=== PATIENT | male | born 2000 | race Caucasian/White ===

== ENCOUNTER 2021-08-10 07:29 | Emergency (ER) | payer OTHER ==
[~2021-08-10] VITALS: Ht 188 cm; Wt 90.7 kg
[~2021-08-10 07:29] MED LIST: ACETAMINOPHEN-1 EAC1 PO; APAP500 PO; AUGMENTIN 500-1 EACH PO; IBUPROFEN 600600 M1 PO; IBUPROFEN 800800 MG PO; KEFLEX500 MG PO; MEDROLDOSEPACK PO; MELOXICAM15 MG PO; Magic Mouthwash PO; NOHOMEMEDICATIONS; PAXIL10 MG
[2021-08-10 07:31] VITALS: BP 130/53
[2021-08-10 09:25] LABS: AMP/METHAMP Negative (Negative); BARBITURATES Negative (Negative); BENZODIAZEPINES Negative (Negative); COCAINE Negative (Negative); METHADONE Negative (Negative); OPIATES Negative (Negative); PCP Negative (Negative)
== END 2021-08-10 09:01 | disposition home or self-care (01) ==
LOC: ER 07:29
PROVIDERS: Student in an Organized Health Care Education/Training Program
DX: S61.212A Laceration without foreign body of right middle finger without damage to nail, initial encounter (principal); S61.214A Laceration without foreign body of right ring finger without damage to nail, initial encounter; W25.XXXA Contact with sharp glass, initial encounter; Y93.89 Activity, other specified; Y92.89 Other specified places as the place of occurrence of the external cause; Y99.8 Other external cause status

== ENCOUNTER 2021-08-18 14:02 | Emergency (ER) | payer OTHER ==
[~2021-08-18] VITALS: Ht 187.9 cm; Wt 79.4 kg
[2021-08-18 14:08] VITALS: BP 122/66
== END 2021-08-18 14:30 | disposition home or self-care (01) ==
LOC: ER 14:02
DX: S61.210D Laceration without foreign body of right index finger without damage to nail, subsequent encounter (principal); S61.212D Laceration without foreign body of right middle finger without damage to nail, subsequent encounter; X58.XXXD Exposure to other specified factors, subsequent encounter

== ENCOUNTER 2021-08-22 13:02 | Emergency (ER) | payer OTHER ==
[~2021-08-22] VITALS: Ht 157.5 cm; Wt 79.4 kg
[2021-08-22 13:06] VITALS: BP 115/63
== END 2021-08-22 13:20 | disposition home or self-care (01) ==
LOC: ER 13:02
DX: S61.210D Laceration without foreign body of right index finger without damage to nail, subsequent encounter (principal); S61.212D Laceration without foreign body of right middle finger without damage to nail, subsequent encounter; X58.XXXD Exposure to other specified factors, subsequent encounter